=== PATIENT | male | born 1955 | race Caucasian/White ===

== ENCOUNTER 2021-12-28 13:31 | Outpatient (CLI) | payer MEDICARE | END 2021-12-28 13:32 | disposition home or self-care (01) | LOC: TBSIIMAG 13:31 | PROVIDERS: ATTEND Neurological Surgery | DX: M51.16 Intervertebral disc disorders with radiculopathy, lumbar region (principal); M48.061 Spinal stenosis, lumbar region without neurogenic claudication; M47.26 Other spondylosis with radiculopathy, lumbar region; Z98.890 Other specified postprocedural states | CPT/HCPCS: 72158 ==

== ENCOUNTER 2022-01-21 11:18 | Outpatient (CLI) | payer MEDICARE ==
[2022-01-21 23:49] LABS: SARS-CoV-2 PCR by NAA Not Detected (NotDetected)
== END 2022-01-21 11:19 | disposition home or self-care (01) ==
LOC: LABBT 11:18
PROVIDERS: ATTEND Neurological Surgery
DX: Z01.818 Encounter for other preprocedural examination (principal); M48.061 Spinal stenosis, lumbar region without neurogenic claudication; M54.16 Radiculopathy, lumbar region; Z20.822 Contact with and (suspected) exposure to COVID-19
CPT/HCPCS: 93005; U0003; U0005; 93010

== ENCOUNTER 2022-01-26 06:54 | Day surgery (SDC) | payer MEDICARE ==
[2022-01-24 12:05] VITALS: BMI 32.1
[2022-01-26] MEDS ORDERED: Bupivacaine PF 0.5% 30 ML VIAL ONE (07:33)
[2022-01-26] MEDS ORDERED: EPINEPHrine 1 MG/ML AMP ONE (07:33)
[2022-01-26] MEDS ORDERED: Sodium Chloride 0.9% 100 ML ONE ×2 (08:29→12:49)
[2022-01-26] MEDS ORDERED: CEFAZOLIN 2 GM VIAL ONE ×2 (08:29→12:49)
[2022-01-26] MEDS ORDERED: fentaNYL Citrate/PF 100 MCG/2 ML SYRINGE ONE ×2 (08:34→10:29)
[2022-01-26] MEDS ORDERED: Midazolam HCl 2 mg/2 ml Vial ONE (08:34)
[2022-01-26] MEDS ORDERED: Thrombin 5000 UNITS/5 ML VIAL ONE (10:25)
[2022-01-26] MEDS ORDERED: Tamsulosin HCl 0.4 MG CAP ONE (10:47)
== END 2022-01-26 13:24 | disposition home or self-care (01) ==
LOC: SDC 06:54
PROVIDERS: ATTEND Neurological Surgery
PROC: 01NB0ZZ Release Lumbar Nerve, Open Approach (ICD-10-PCS; principal; 2022-01-26)
DX: M48.062 Spinal stenosis, lumbar region with neurogenic claudication (principal); M54.16 Radiculopathy, lumbar region; E78.5 Hyperlipidemia, unspecified; I10 Essential (primary) hypertension; Z79.899 Other long term (current) drug therapy
CPT/HCPCS: 76000; C1713; J0171; J2250; J3490; S0020